=== PATIENT | male | born 2000 | race Caucasian/White ===

== ENCOUNTER 2021-05-07 19:10 | Emergency (ER) | payer BC, SELFPAY ==
[2021-05-07] MEDS ORDERED: Acetaminophen 500 MG TAB ONE (19:19)
[2021-05-07] MEDS ORDERED: Ibuprofen 200 MG TAB ONE (19:24)
[2021-05-08 14:31] LABS: SARS-CoV-2 PCR by NAA Not Detected (NotDetected)
== END 2021-05-07 20:15 | disposition home or self-care (01) ==
LOC: NAV ERS 19:10
DX: R00.0 Tachycardia, unspecified (principal); R50.9 Fever, unspecified; Z20.822 Contact with and (suspected) exposure to COVID-19; R05.9 Cough, unspecified; R51.9 Headache, unspecified; R42 Dizziness and giddiness; E66.9 Obesity, unspecified; F17.290 Nicotine dependence, other tobacco product, uncomplicated
CPT/HCPCS: 99283; U0003; U0005